=== PATIENT | female | born 1930 | race Caucasian/White ===

== ENCOUNTER 2017-10-14 15:12 | Emergency (ER) | payer MEDICARE, BC ==
[~2017-10-14] VITALS: Ht 157.5 cm; Wt 65.8 kg
[~2017-10-14 15:12] MED LIST: ATOR10TA PO; BP MED PO; FAMC500T18 PO; IRBE150T28 PO; LEVO75TA7 PO; LORA1TAB PO
[2017-10-14] MEDS ORDERED: TRAMADOL HCL 50 MG TABLET PO (15:46)
[2017-10-14] MEDS ORDERED: ACET-2154 PO (15:46)
[2017-10-14] MEDS ORDERED: MOXI3DRO OP (15:46)
[2017-10-14] MEDS ORDERED: PANT40TA4 PO (15:46)
[2017-10-14] MEDS ORDERED: ELIQUIS 2.5 MG TABLET PO (15:46)
[2017-10-14] MEDS ORDERED: NEOM3.5O9 TOP (15:46)
[2017-10-14] MEDS ORDERED: MAGN400T6 PO (15:46)
[2017-10-14] MEDS ORDERED: ASPI-1094 PO (15:46)
[2017-10-14] MEDS ORDERED: METO25TA3 PO (15:46)
[2017-10-14] MEDS ORDERED: DIFL5DRO OP (15:46)
[2017-10-14] MEDS ORDERED: SENN-167 PO (15:47)
[2017-10-14] MEDS ORDERED: ACYCLOVIR 400 MG TABLET PO ONE (16:00)
[2017-10-14] MEDS ORDERED: predniSONE 50 MG TABLET PO ONE (16:00)
--- NOTE | 2017-10-14 16:14 | NUR ---
Patient discharged to home in stable conditon. Written and verbal after care instructions given to patient and family. Patient and family verbalized understanding of instructions.
[2017-10-14] MEDS ORDERED: ACYCLOVIR 400 MG TABLET ONE (16:20)
[2017-10-14] MEDS ORDERED: predniSONE 50 MG TABLET ONE (16:20)
== END 2017-10-14 16:20 | disposition home or self-care (01) ==
LOC: ER 15:13
DX: B02.9 Zoster without complications (principal); E03.9 Hypothyroidism, unspecified; E78.00 Pure hypercholesterolemia, unspecified; I35.0 Nonrheumatic aortic (valve) stenosis; Z79.01 Long term (current) use of anticoagulants; Z79.82 Long term (current) use of aspirin; Z95.2 Presence of prosthetic heart valve
CPT/HCPCS: A4663; J7512

== ENCOUNTER 2018-03-07 19:08 | Inpatient (IN) | payer MEDICARE, BC ==
[~2018-03-07] VITALS: Ht 157.5 cm; Wt 64.4 kg
[~2018-03-07 19:08] MED LIST changes: +ACET-2154 PO; +ASPI-1094 PO; -BP MED PO; +DIFL5DRO OP; +ELIQUIS 2.5 MG TABLET PO; -FAMC500T18 PO; -LORA1TAB PO; +MAGN400T6 PO; +METO25TA3 PO; +MOXI3DRO OP; +NEOM3.5O9 TOP; +PANT40TA4 PO; +SENN-167 PO; +TRAMADOL HCL 50 MG TABLET PO
[2018-03-07] MEDS ORDERED: DILTIAZEM HCL 25 MG IV ONE (19:42)
[2018-03-07] MEDS ORDERED: DILTIAZEM HCL 25 MG IV IV ONE (19:45)
[2018-03-07] MEDS: DILTIAZEM HCL IV 125 MG in IV DEXTROSE 5% 100 ML IV PRN (20:07)
[2018-03-07] MEDS ORDERED: APIX2.5T PO (20:17)
[2018-03-07 20:21] LABS: BASOPHILS # (AUTO) 0.1 K/uL (0.0-8.0); BASOPHILS % (AUTO) 0.8 % (0.0-2.0); EOSINOPHILS # (AUTO) 0.4 K/uL (0.0-0.7); EOSINOPHILS % (AUTO) 4.1 % (0.0-7.0); HEMATOCRIT 42.1 % (31.2-41.9); HEMOGLOBIN 14.5 g/dL (10.9-14.3); LYMPHOCYTES # (AUTO) 1.6 K/uL (20.0-40.0); LYMPHOCYTES % (AUTO) 16.9 % (20.5-51.5); MEAN CORPUSCULAR HEMOGLOBIN 31.9 uug (24.7-32.8); MEAN CORPUSCULAR HGB CONC 35 g/dL (32.3-35.6); MEAN CORPUSCULAR VOLUME 92.4 fL (75.5-95.3); MONOCYTES # (AUTO) 0.8 K/uL (2.0-10.0); MONOCYTES % (AUTO) 8.1 % (0.0-11.0); NEUTROPHILS # (AUTO) 6.8 K/uL (1.8-8.9); NEUTROPHILS % (AUTO) 70.1 % (38.5-71.5); PLATELET COUNT (AUTO) 181 K/uL (179-408); RED BLOOD CELL COUNT(AUTO) 4.56 MIL/uL (3.63-4.92); WHITE BLOOD COUNT (AUTO) 9.7 K/uL (3.8-11.8)
[2018-03-07 20:30] LABS: CARBON DIOXIDE 21 mmol/L (21-32); CHLORIDE 105 mmol/L (98-107); CREATININE 1.1 mg/dL (0.6-1.3); GLUCOSE 167 mg/dL (74-106); POTASSIUM 4.2 mmol/L (3.5-5.1); UREA NITROGEN, BLOOD 21 mg/dL (7-18)
[2018-03-07 21:15] LABS: ALANINE AMINOTRANSFERASE 29 U/L (14-59); ALKALINE PHOSPHATASE 83 U/L (50-136); ASPARTATE AMINOTRANSFERASE 16 U/L (15-37); BILIRUBIN,DIRECT 0.1 mg/dL (0.0-0.2); BILIRUBIN,TOTAL 0.5 mg/dL (0.2-1.0); TOTAL PROTEIN, SERUM 7.5 g/dL (6.4-8.2)
[2018-03-07] MEDS ORDERED: INSULIN REGULAR, HUMAN 300 UNIT/3 ML VIAL SQ PRN (22:00)
[2018-03-07] MEDS ORDERED: ACETAMINOPHEN 325 MG TABLET PO PRN (22:00)
[2018-03-07] MEDS ORDERED: ONDANSETRON 4 MG/2 ML VIAL IV PRN (22:00)
[2018-03-07] MEDS ORDERED: DEXTROSE 50% 50 ML DISP.SYRIN IV PRN (22:00)
[2018-03-07] MEDS ORDERED: AMIODARONE HCL IV 150 MG in IV DEXTROSE 5% 100 ML IV ONE ×2 (22:15→23:45)
[2018-03-07] MEDS ORDERED: IRBE150T28 PO (23:39)
[2018-03-07] MEDS ORDERED: METO25TA3 PO (23:39)
[2018-03-07] MEDS ORDERED: AMIODARONE HCL 150 MG/3 ML VIAL IV ONE (23:55)
[2018-03-08] VITALS (49 sets, daily range): BP systolic 11–128; BP diastolic 36–84
[2018-03-08] MEDS: AMIODARONE HCL IV 900 MG in IV DEXTROSE 5% 482 ML IV PRN ×2 (00:32→08:14)
[2018-03-08 02:29] LABS: *BILIRUBIN,URIN NEGATIVE (NEGATIVE); *BLOOD, URINE NEGATIVE (NEGATIVE); *CLARITY,URINE CLEAR (CLEAR); *COLOR,URINE YELLOW (YELLOW); *KETONES,URINE NEGATIVE (NEGATIVE); *PROTEIN,URINE NEGATIVE (NEGATIVE); *UROBILINOGEN,URINE 0.2 E.U./dl (NORMAL); LEUKOCYTE ESTERASE ,URINE NEGATIVE (NEGATIVE); NITRITE, URINE NEGATIVE (NEGATIVE); PH,URINE 5.5 (5.0-8.0); UGLUCOSE NEGATIVE (NEGATIVE)
[2018-03-08 02:32] LABS: BACTERIA,URINE NONE SEEN /HPF (NONE SEEN); RBC,URINE NONE SEEN /HPF (0-3); SQUAMOUS EPITHELIAL CELL,UR FEW /HPF (NONE SEEN); WBC,URINE 0-3 /HPF (0-3)
[2018-03-08 05:16] LABS: BASOPHILS # (AUTO) 0.1 K/uL (0.0-8.0); EOSINOPHILS # (AUTO) 0.6 K/uL (0.0-0.7); EOSINOPHILS % (AUTO) 4.4 % (0.0-7.0); HEMATOCRIT 43.8 % (31.2-41.9); HEMOGLOBIN 15.1 g/dL (10.9-14.3); LYMPHOCYTES # (AUTO) 3.5 K/uL (20.0-40.0); LYMPHOCYTES % (AUTO) 26.1 % (20.5-51.5); MEAN CORPUSCULAR HEMOGLOBIN 31.9 uug (24.7-32.8); MEAN CORPUSCULAR HGB CONC 34 g/dL (32.3-35.6); MEAN CORPUSCULAR VOLUME 92.7 fL (75.5-95.3); MONOCYTES # (AUTO) 1.2 K/uL (2.0-10.0); NEUTROPHILS % (AUTO) 59.5 % (38.5-71.5); PLATELET COUNT (AUTO) 197 K/uL (179-408); RED BLOOD CELL COUNT(AUTO) 4.72 MIL/uL (3.63-4.92); WHITE BLOOD COUNT (AUTO) 13.4 K/uL (3.8-11.8)
[2018-03-08 05:18] LABS: CARBON DIOXIDE 22 mmol/L (21-32); CHLORIDE 106 mmol/L (98-107); CREATININE 1.1 mg/dL (0.6-1.3); GLUCOSE 137 mg/dL (74-106); PHOSPHOROUS 4.1 mg/dL (2.5-4.9); UREA NITROGEN, BLOOD 18 mg/dL (7-18)
[2018-03-08 05:32] LABS: THYROID STIMULATING HORMONE 1.151 mIU/mL (0.358-3.740)
[2018-03-08] MEDS ORDERED: DILTIAZEM HCL 25 MG IV ONE (05:38)
[2018-03-08] MEDS: DILTIAZEM HCL IV 125 MG in IV DEXTROSE 5% 100 ML IV PRN ×2 (06:00→07:58)
[2018-03-08 06:03] LABS: CHOLESTEROL 194 mg/dL (<200); HDL CHOLESTEROL 71 mg/dL (40-60); TRIGLYCERIDES 99 MG/DL (30-150)
[2018-03-08] MEDS: BLOOD SUGAR DIAGNOSTIC 1 EACH STRIP VI SCH ×4 (07:56→20:27)
[2018-03-08] MEDS ORDERED: Medication Not On Formulary EA (Apixaban (Eliquis) 2.5 MG) PO SCH (09:00)
[2018-03-08] MEDS ORDERED: Medication Not On Formulary EA (Irbesartan (Avapro) 150 MG) PO SCH (09:00)
[2018-03-08] MEDS ORDERED: METOPROLOL SUCCINATE XL 25 MG TAB.SR.24H PO SCH (09:00)
[2018-03-08] MEDS: LEVOTHYROXINE SODIUM 75 MCG TABLET PO SCH (09:06)
[2018-03-08] MEDS: PANTOPRAZOLE SODIUM 40 MG VIAL IV SCH (09:06)
[2018-03-08] MEDS ORDERED: APIXABAN 5 MG TABLET PO ONE (09:30)
[2018-03-08] MEDS ORDERED: CEFTRIAXONE 1 G VIAL IM SCH (10:30)
[2018-03-08] MEDS: AZITHROMYCIN 250 MG TABLET PO SCH ×2 (10:32→12:41)
[2018-03-08] MEDS: CEFTRIAXONE 1 G in IV DEXTROSE 5% 50 ML IV SCH (12:07)
[2018-03-08] MEDS: DILTIAZEM HCL CD 120 MG CAP.SR.24H PO SCH (12:41)
[2018-03-08] MEDS: ELIQUIS 2.5 MG ***PT'S OWN MED PO SCH (16:50)
[2018-03-08] MEDS ORDERED: ATORVASTATIN 10 MG TABLET PO SCH (21:00)
[2018-03-09] VITALS: BP 116/46
[2018-03-09 04:00] VITALS: BP 104/55
[2018-03-09 05:58] LABS: BASOPHILS % (AUTO) 0.3 % (0.0-2.0); EOSINOPHILS # (AUTO) 0.5 K/uL (0.0-0.7); EOSINOPHILS % (AUTO) 3.9 % (0.0-7.0); HEMATOCRIT 39.2 % (31.2-41.9); HEMOGLOBIN 13.4 g/dL (10.9-14.3); LYMPHOCYTES # (AUTO) 1.1 K/uL (20.0-40.0); LYMPHOCYTES % (AUTO) 8.1 % (20.5-51.5); MEAN CORPUSCULAR HEMOGLOBIN 31.6 uug (24.7-32.8); MEAN CORPUSCULAR HGB CONC 34 g/dL (32.3-35.6); MEAN CORPUSCULAR VOLUME 92.5 fL (75.5-95.3); MONOCYTES # (AUTO) 0.6 K/uL (2.0-10.0); MONOCYTES % (AUTO) 4.6 % (0.0-11.0); NEUTROPHILS % (AUTO) 83.1 % (38.5-71.5); PLATELET COUNT (AUTO) 157 K/uL (179-408); RED BLOOD CELL COUNT(AUTO) 4.24 MIL/uL (3.63-4.92); WHITE BLOOD COUNT (AUTO) 13.2 K/uL (3.8-11.8)
[2018-03-09 06:22] LABS: CARBON DIOXIDE 25 mmol/L (21-32); CHLORIDE 104 mmol/L (98-107); CREATININE 1.1 mg/dL (0.6-1.3); GLUCOSE 126 mg/dL (74-106); MAGNESIUM 1.9 mg/dL (1.8-2.4); PHOSPHOROUS 3.8 mg/dL (2.5-4.9); POTASSIUM 4.3 mmol/L (3.5-5.1); UREA NITROGEN, BLOOD 18 mg/dL (7-18)
[2018-03-09] MEDS: BLOOD SUGAR DIAGNOSTIC 1 EACH STRIP VI SCH ×2 (06:36→11:57)
[2018-03-09 08:00] VITALS: BP 93/49
[2018-03-09] MEDS: PANTOPRAZOLE SODIUM 40 MG VIAL IV SCH (08:46)
[2018-03-09] MEDS: LEVOTHYROXINE SODIUM 75 MCG TABLET PO SCH (08:47)
[2018-03-09] MEDS: ELIQUIS 2.5 MG ***PT'S OWN MED PO SCH (08:47)
[2018-03-09] MEDS: DILTIAZEM HCL CD 120 MG CAP.SR.24H PO SCH (08:48)
[2018-03-09] MEDS: AZITHROMYCIN 250 MG TABLET PO SCH (10:29)
[2018-03-09] MEDS ORDERED: CEFTRIAXONE 1 G VIAL IV SCH (10:30)
[2018-03-09] MEDS ORDERED: AZIT250T13 PO (11:39)
[2018-03-09] MEDS ORDERED: DILT120C62 PO (11:39)
[2018-03-09 11:48] VITALS: BP 93/51
[2018-03-09] MEDS: CEFTRIAXONE 1 G in IV DEXTROSE 5% 50 ML IV SCH (11:57)
[2018-03-10] MEDS ORDERED: PANTOPRAZOLE SODIUM 40 MG TABLET.DR PO SCH (07:00)
== END 2018-03-09 14:15 | disposition home or self-care (01) | DRG 280 ==
LOC: ER 19:10 → CCUOV 23:29 → CCU 03-08 07:23 → TELE-TD 03-08 19:09
PROVIDERS: ADMIT Registered Nurse; ATTEND Registered Nurse
DX: I48.91 Unspecified atrial fibrillation (principal); I21.A1 Myocardial infarction type 2; J18.9 Pneumonia, unspecified organism; E44.1 Mild protein-calorie malnutrition; I08.3 Combined rheumatic disorders of mitral, aortic and tricuspid valves; Z95.2 Presence of prosthetic heart valve; E03.9 Hypothyroidism, unspecified; E78.5 Hyperlipidemia, unspecified; Z68.26 Body mass index [BMI] 26.0-26.9, adult; Z79.01 Long term (current) use of anticoagulants; Z87.81 Personal history of (healed) traumatic fracture; I70.0 Atherosclerosis of aorta; R73.9 Hyperglycemia, unspecified; R79.89 Other specified abnormal findings of blood chemistry; T82.867D Thrombosis due to cardiac prosthetic devices, implants and grafts, subsequent encounter; I10 Essential (primary) hypertension
CPT/HCPCS: 36415; 70030-TC; 71045; 83735; 84100; 84443; 85025; 85730; 93005; 93307; A4663; C9113; J0282; J0696; J1815; J3490; J7060; Q0144

== ENCOUNTER 2018-06-15 14:24 | Emergency (ER) | payer MEDICARE, BC ==
[~2018-06-15] VITALS: Ht 165.1 cm; Wt 68.0 kg
[~2018-06-15 14:24] MED LIST changes: -ACET-2154 PO; +APIX2.5T PO; -ASPI-1094 PO; +AZIT250T13 PO; -DIFL5DRO OP; +DILT120C62 PO; -ELIQUIS 2.5 MG TABLET PO; -IRBE150T28 PO; -MAGN400T6 PO; -METO25TA3 PO; -MOXI3DRO OP; -NEOM3.5O9 TOP; -SENN-167 PO; -TRAMADOL HCL 50 MG TABLET PO
--- NOTE | 2018-06-15 14:30 | NUR ---
at bedside to examine patient.
--- NOTE | 2018-06-15 14:40 | NUR ---
pt. taken down for Ct.
--- NOTE | 2018-06-15 14:58 | NUR ---
Pt. back from CT.
--- NOTE | 2018-06-15 15:57 | NUR ---
Dr. Garcia at bedside discussing test results with patient.
--- NOTE | 2018-06-15 16:32 | NUR ---
dcd instructions given to pt. sitter at bedside. pt. left room AAOX4. accompanied by sitter.
== END 2018-06-15 16:35 | disposition home or self-care (01) ==
LOC: ER 14:25
DX: S20.229A Contusion of unspecified back wall of thorax, initial encounter (principal); S09.90XA Unspecified injury of head, initial encounter; E78.5 Hyperlipidemia, unspecified; E03.9 Hypothyroidism, unspecified; W01.0XXA Fall on same level from slipping, tripping and stumbling without subsequent striking against object, initial encounter; Y93.89 Activity, other specified; Y92.89 Other specified places as the place of occurrence of the external cause; Y99.8 Other external cause status
CPT/HCPCS: 70450; 72128; 99284; A4663

== ENCOUNTER 2018-11-03 12:00 | Inpatient (IN) | payer MEDICARE, BC ==
[~2018-11-03] VITALS: Ht 162.6 cm; Wt 67.6 kg
[2018-11-03] VITALS (11 sets, daily range): BP systolic 76–149; BP diastolic 31–110
[~2018-11-03 12:00] MED LIST changes: +DILT-8 PO; -DILT120C62 PO
[2018-11-03] MEDS ORDERED: DILTIAZEM HCL 25 MG IV ONE ×2 (12:18→12:41)
--- NOTE | 2018-11-03 12:23 | NUR ---
PT IS IN ROOM #1A. DR CAMPOS EVALUATED THE PT.
[2018-11-03] MEDS ORDERED: DILTIAZEM HCL 25 MG IV IV ONE ×2 (12:30)
[2018-11-03] MEDS ORDERED: METO-356 PO (12:34)
[2018-11-03] MEDS ORDERED: IRBE150T28 PO (12:34)
[2018-11-03 12:40] LABS: BASOPHILS # (AUTO) 0.1 K/uL (0.0-8.0); BASOPHILS % (AUTO) 0.8 % (0.0-2.0); EOSINOPHILS # (AUTO) 0.4 K/uL (0.0-0.7); EOSINOPHILS % (AUTO) 4.4 % (0.0-7.0); HEMATOCRIT 40.4 % (31.2-41.9); HEMOGLOBIN 13.4 g/dL (10.9-14.3); LYMPHOCYTES # (AUTO) 1.9 K/uL (20.0-40.0); LYMPHOCYTES % (AUTO) 23.6 % (20.5-51.5); MEAN CORPUSCULAR HEMOGLOBIN 30.4 uug (24.7-32.8); MEAN CORPUSCULAR HGB CONC 33 g/dL (32.3-35.6); MEAN CORPUSCULAR VOLUME 91.6 fL (75.5-95.3); MONOCYTES # (AUTO) 0.8 K/uL (2.0-10.0); MONOCYTES % (AUTO) 9.4 % (0.0-11.0); NEUTROPHILS # (AUTO) 5.1 K/uL (1.8-8.9); NEUTROPHILS % (AUTO) 61.8 % (38.5-71.5); PLATELET COUNT (AUTO) 191 K/uL (179-408); RED BLOOD CELL COUNT(AUTO) 4.41 MIL/uL (3.63-4.92); WHITE BLOOD COUNT (AUTO) 8.2 K/uL (3.8-11.8)
[2018-11-03 12:47] LABS: CARBON DIOXIDE 23 mmol/L (21-32); CHLORIDE 104 mmol/L (98-107); GLUCOSE 132 mg/dL (74-106); POTASSIUM 4.4 mmol/L (3.5-5.1); UREA NITROGEN, BLOOD 20 mg/dL (7-18)
[2018-11-03 13:00] LABS: THYROID STIMULATING HORMONE 1.939 mIU/mL (0.358-3.740)
[2018-11-03] MEDS ORDERED: IV NORMAL SALINE 500 ML BAG IV ONE ×2 (13:00→14:15)
[2018-11-03 13:03] LABS: ALANINE AMINOTRANSFERASE 19 U/L (14-59); ALKALINE PHOSPHATASE 81 U/L (50-136); ASPARTATE AMINOTRANSFERASE 16 U/L (15-37); BILIRUBIN,DIRECT 0.1 mg/dL (0.0-0.2); BILIRUBIN,TOTAL 0.6 mg/dL (0.2-1.0); TOTAL PROTEIN, SERUM 7.3 g/dL (6.4-8.2)
[2018-11-03] MEDS ORDERED: DILTIAZEM HCL IV 125 MG in IV DEXTROSE 5% 100 ML IV PRN (13:30)
[2018-11-03] MEDS ORDERED: AMIODARONE HCL IV 900 MG in IV DEXTROSE 5% 482 ML IV PRN ×2 (14:15→15:30)
--- NOTE | 2018-11-03 15:00 | NUR ---
ADMITTED AN 88YR OLD FEMALE FROM THE ER VIA [facility] WITH A C/O FAST HEART BEAT ABOVE 100B/MIN. AWAKE, ALERT AND ORIENTEDX3. VERY PLEASANT LADY. NO C/O CHEST PAINS. COLOR IS GOOD AND MOVE ALL EXTREMETIES WELL. HR IS AFIB WITH RVR IN THE 130'S. O2 ON 2LNC WITH A SATURATION OF 98%. NO RESPIRATORY DISTRESS NOTED. AMIODARONE BOLUS IS IN PROGRESS AND FOLLOWED UP WITH THE 1MG RUNNING VIA THE RT FA.SBP IS HOLDING.
[2018-11-03] MEDS: AMIODARONE HCL IV 150 MG in IV DEXTROSE 5% 100 ML IV ONE ×2 (15:03→15:12)
--- NOTE | 2018-11-03 15:04 | NUR ---
REPORT WAS GIVEN TO OIL RECOVERY OPERATOR MIMI. PT WAS TRANSFERED TO ROOM # CCU3.
[2018-11-03] MEDS ORDERED: FUROSEMIDE 40 MG/4 ML VIAL IV ONE (15:30)
[2018-11-03] MEDS ORDERED: ONDANSETRON 4 MG/2 ML VIAL IV PRN (18:15)
[2018-11-03] MEDS ORDERED: Z GUARD REMEDY PASTE 57 GM TUBE TOP PRN (18:15)
[2018-11-03] MEDS ORDERED: ACETAMINOPHEN 325 MG TABLET PO PRN (18:15)
--- NOTE | 2018-11-03 19:45 | NUR ---
Pt resting in bed. Respirations even and unlabored on O2 at 2lpm. Currently on Amiodarone 1mg/hr since 1554. Noted with episodes of V-tach unsustained. Pt currently speaking on phone with son. Bed in low and locked position. Call light in reach. Will continue to monitor
--- NOTE | 2018-11-03 20:10 | NUR ---
Notified MD of of unsustained episodes of V-tach. No new orders continue to monitor.Home medications reconciliation completed by .
[2018-11-03] MEDS ORDERED: APIXABAN 5 MG TABLET PO SCH (20:15)
--- NOTE | 2018-11-03 22:00 | NUR ---
Notified JIMMY Alba of episodes of V-tach once again. Suggested cardiology consult. Pt to be seen by Consulting Business Developer. New order for Metoprolol tartrate 25mg if SBP greater than 100. New order to discontinue Cardizem Drip.
[2018-11-03] MEDS ORDERED: ATORVASTATIN 10 MG TABLET ONE (22:04)
[2018-11-03] MEDS ORDERED: METOPROLOL TARTRATE 25 MG TABLET PO ONE (22:15)
[2018-11-03] MEDS: ATORVASTATIN 10 MG TABLET PO SCH (22:30)
[2018-11-03] MEDS: ZOLPIDEM 5 MG TABLET PO PRN (22:32)
[2018-11-04] VITALS (31 sets, daily range): BP systolic 91–130; BP diastolic 46–100
--- NOTE | 2018-11-04 00:40 | NUR ---
Contacted [employer]. Spoke with JIMMY desai. Received order to increase Amiodarone to 1mg. CBC, CMP, Mg and phos.
--- NOTE | 2018-11-04 00:50 | NUR ---
Spoke with Flying Squad Salesperson Dr. Michelle. New order to titrate Amiodarone back down to 0.5mg. Notified by MD that patient is having "aberrant conduction".
[2018-11-04] MEDS: AMIODARONE HCL IV 900 MG in IV DEXTROSE 5% 482 ML IV PRN ×2 (01:00→12:53)
[2018-11-04 01:53] LABS: BASOPHILS % (AUTO) 0.3 % (0.0-2.0); EOSINOPHILS # (AUTO) 0.3 K/uL (0.0-0.7); EOSINOPHILS % (AUTO) 2.1 % (0.0-7.0); HEMATOCRIT 40.6 % (31.2-41.9); HEMOGLOBIN 13.6 g/dL (10.9-14.3); LYMPHOCYTES # (AUTO) 2.2 K/uL (20.0-40.0); LYMPHOCYTES % (AUTO) 15.6 % (20.5-51.5); MEAN CORPUSCULAR HEMOGLOBIN 30.7 uug (24.7-32.8); MEAN CORPUSCULAR HGB CONC 34 g/dL (32.3-35.6); MEAN CORPUSCULAR VOLUME 91.5 fL (75.5-95.3); MONOCYTES # (AUTO) 0.8 K/uL (2.0-10.0); MONOCYTES % (AUTO) 6.1 % (0.0-11.0); NEUTROPHILS # (AUTO) 10.5 K/uL (1.8-8.9); NEUTROPHILS % (AUTO) 75.9 % (38.5-71.5); PLATELET COUNT (AUTO) 200 K/uL (179-408); RED BLOOD CELL COUNT(AUTO) 4.44 MIL/uL (3.63-4.92); WHITE BLOOD COUNT (AUTO) 13.9 K/uL (3.8-11.8)
--- NOTE | 2018-11-04 02:00 | NUR ---
Pt verbalized that she would prefer to have care provided by Female staff. Received assistance from Charge nurse. Lab results relayed to JIMMY Guerrero. No new orders at this time. Addendum: 11/04/18 at 0409 by BART LORENZ RN Also notified by patient that she does not want a Quiroz catheter inserted. Risk and benefits explained.
[2018-11-04 02:04] LABS: ALANINE AMINOTRANSFERASE 19 U/L (14-59); ALKALINE PHOSPHATASE 82 U/L (50-136); ASPARTATE AMINOTRANSFERASE 17 U/L (15-37); BILIRUBIN,TOTAL 0.7 mg/dL (0.2-1.0); CARBON DIOXIDE 25 mmol/L (21-32); CHLORIDE 102 mmol/L (98-107); CHOLESTEROL 207 mg/dL (<200); CREATININE 1.1 mg/dL (0.6-1.3); GLUCOSE 130 mg/dL (74-106); HDL CHOLESTEROL 69 mg/dL (40-60); MAGNESIUM 1.9 mg/dL (1.8-2.4); PHOSPHOROUS 4.4 mg/dL (2.5-4.9); POTASSIUM 4.1 mmol/L (3.5-5.1); TOTAL PROTEIN, SERUM 7.5 g/dL (6.4-8.2); TRIGLYCERIDES 91 MG/DL (30-150); UREA NITROGEN, BLOOD 21 mg/dL (7-18)
[2018-11-04 02:11] LABS: THYROID STIMULATING HORMONE 1.702 mIU/mL (0.358-3.740)
--- NOTE | 2018-11-04 07:30 | NUR ---
RECIEVED PT LYING IN BED SOUND ASLEEP BUT EASILY AROUSABLE TO CALL. VERY PLEASANT LADY, DENIES AND C/O PAIN. ORIENTED X3. HR IS STILL ON AFIB WITH RVR AND ABBERANCY RATE OF 130-160B/MIN. ON AMIODARONE DRIP IN PROGRESS, IV SITE APPEARS TO BE INFILTRATED, SWOLLEN AND RED. REMOVED AND RESTARTED A NEW LINE ON THE LEFT HAND G22. NO C/O OF RESPIRATORY DISTRESS. O2 ON 2LNC, SAT OF 97-99%. LUNGS ARE CLEAR.
--- NOTE | 2018-11-04 07:45 | NUR ---
APPLIED WARM COMPRESS AROUND THE INFILTRATED IV SITE RIGHT FA AND ELEVATED IT ON A PILLOW. PT MOVES ALL EXTREMETIES WELL. NO EDEMA NOTED ON PERIPHERAL EXTREMETIES.
--- NOTE | 2018-11-04 08:00 | NUR ---
PT ATE GOOD BREAKFAST, TOLERATED WELL.
[2018-11-04] MEDS: LEVOTHYROXINE SODIUM 75 MCG TABLET PO SCH (08:05)
[2018-11-04] MEDS: PANTOPRAZOLE SODIUM 40 MG TABLET.DR PO SCH (08:05)
[2018-11-04] MEDS ORDERED: PANTOPRAZOLE SODIUM 40 MG TABLET.DR PO SCH (09:00)
[2018-11-04] MEDS ORDERED: LEVOTHYROXINE SODIUM 75 MCG TABLET PO SCH (09:00)
[2018-11-04] MEDS ORDERED: APIXABAN 5 MG TABLET PO SCH (09:00)
[2018-11-04] MEDS ORDERED: METOPROLOL SUCCINATE XL 25 MG TAB.SR.24H PO SCH (09:00)
[2018-11-04] MEDS ORDERED: APIXABAN 5 MG TABLET PO ONE (09:00)
[2018-11-04] MEDS: DILTIAZEM HCL CD 120 MG CAP.SR.24H PO SCH (09:14)
--- NOTE | 2018-11-04 09:30 | NUR ---
2D ECHO DONE AT THE BEDSIDE ORDERED.
--- NOTE | 2018-11-04 12:15 | NUR ---
SEEN AND EXAMINED BY DR LEOS WITH NEW ORDERS. OKEYED TO CONTINUE BENEDICTO NAJERA.
[2018-11-04] MEDS ORDERED: DIGOXIN 500 MCG/2 ML AMP IV ONE ×2 (12:30→18:30)
--- NOTE | 2018-11-04 13:00 | NUR ---
DIGOXIN 500MCG SLOW IVP GIVEN ORDERED. HR IS 140B/MIN. PT'S IV SITE ON LEFT HAND IS INTACT, BUT PT C/O PAIN WHEN LINE IS BEING FLUSHED. STARTED ANOTHER LINE ON THE RIGHT INNER FOREARM G20 PATENT AND INTACT. AMIODARONE DRIP IS IN PROGRESS ORDERED.
--- NOTE | 2018-11-04 17:30 | NUR ---
SEEN AND EXAMINED BY DR TOLENTINO WITH NEW ORDERS.
--- NOTE | 2018-11-04 17:30 | NUR ---
SEEN AND EXAMINED BY DR CHRISTENSEN WITH NEW ORDERS. HR STILL AFIV AND RATE IS SLOWING DOWN BETWEEN 111-120B/MIN.
[2018-11-04] MEDS: APIXABAN 2.5 MG PO SCH (18:04)
--- NOTE | 2018-11-04 20:00 | NUR ---
Awake, alert, pleasant. Talkative on phone with sister. Monitor remains Atrial Fib rate 90's to 100's. Stable BP. Amiodarone drip in progress at 0.5 mg/min, site benign. Right arm nub card tender to touch from previous IV infiltration. Affected arm elevated on pillows at all times. Refused warm compress application. Excellent O2 sats; resp even and unlabored. O2 dropped down to 1L/min nasal cannula. Nursing comfort measures observed at all times. Please see CCU flowsheet for full assessment and clinical data.
--- NOTE | 2018-11-04 20:52 | NUR ---
Lipitor 10 mg magenta color on EMar for 11/03 resolved-Pt received med at 2230 by Ame Martinez RN.
[2018-11-04] MEDS: ATORVASTATIN 10 MG TABLET PO SCH (21:21)
[2018-11-04] MEDS: ZOLPIDEM 5 MG TABLET PO PRN (21:22)
[2018-11-05] VITALS (24 sets, daily range): BP systolic 90–139; BP diastolic 40–89
[2018-11-05 05:01] LABS: BASOPHILS # (AUTO) 0.1 K/uL (0.0-8.0); BASOPHILS % (AUTO) 0.6 % (0.0-2.0); EOSINOPHILS # (AUTO) 0.5 K/uL (0.0-0.7); EOSINOPHILS % (AUTO) 4.2 % (0.0-7.0); HEMATOCRIT 41.3 % (31.2-41.9); HEMOGLOBIN 13.9 g/dL (10.9-14.3); LYMPHOCYTES # (AUTO) 1.9 K/uL (20.0-40.0); LYMPHOCYTES % (AUTO) 17.5 % (20.5-51.5); MEAN CORPUSCULAR HGB CONC 34 g/dL (32.3-35.6); MONOCYTES # (AUTO) 0.9 K/uL (2.0-10.0); MONOCYTES % (AUTO) 8.4 % (0.0-11.0); NEUTROPHILS # (AUTO) 7.7 K/uL (1.8-8.9); NEUTROPHILS % (AUTO) 69.3 % (38.5-71.5); PLATELET COUNT (AUTO) 187 K/uL (179-408); RED BLOOD CELL COUNT(AUTO) 4.49 MIL/uL (3.63-4.92); WHITE BLOOD COUNT (AUTO) 11.1 K/uL (3.8-11.8)
[2018-11-05 05:16] LABS: CARBON DIOXIDE 25 mmol/L (21-32); CHLORIDE 103 mmol/L (98-107); CREATININE 1.1 mg/dL (0.6-1.3); GLUCOSE 133 mg/dL (74-106); MAGNESIUM 1.8 mg/dL (1.8-2.4); PHOSPHOROUS 3.1 mg/dL (2.5-4.9); UREA NITROGEN, BLOOD 16 mg/dL (7-18)
--- NOTE | 2018-11-05 06:00 | NUR ---
Restful night, able to sleep well after HS sleeping pill. Monitor remains Afib, at times appear to be in AFlutter with variable block. Amiodarone drip continues to infuse. Stable VS. Please see CCU flowsheet for trends and clinical data.
[2018-11-05] MEDS: PANTOPRAZOLE SODIUM 40 MG TABLET.DR PO SCH (09:06)
[2018-11-05] MEDS: LEVOTHYROXINE SODIUM 75 MCG TABLET PO SCH (09:06)
[2018-11-05] MEDS: DILTIAZEM HCL CD 120 MG CAP.SR.24H PO SCH (09:07)
[2018-11-05] MEDS: APIXABAN 2.5 MG PO SCH ×2 (09:11→17:11)
--- NOTE | 2018-11-05 10:20 | NUR ---
Dr. Alfaro here to see pt. Full report given. New orders received.
[2018-11-05] MEDS ORDERED: DIGOXIN 500 MCG/2 ML AMP IV ONE (10:45)
[2018-11-05] MEDS ORDERED: DILTIAZEM HCL CD 120 MG CAP.SR.24H PO ONE (10:45)
--- NOTE | 2018-11-05 20:00 | NUR ---
Awake, alert, anxious. Wants personal belongings to be on bed with her at all times. Always on phone with sister who lives alone. Oftentimes refuses care when on the phone. Pt needy and requires TLC. Monitor remains uncontrolled AFib, off Amiodarone drip and is being digitalized. Aware of plan for ESTEFANY/cardioversion if no conversion to SR. VS stable. Resp easy and regular with adequate sats on O2 1L/min. Please see CCU flowsheet for full assessment and clinical data.
[2018-11-05] MEDS: ATORVASTATIN 10 MG TABLET PO SCH (21:15)
[2018-11-05] MEDS: ZOLPIDEM 5 MG TABLET PO PRN (21:15)
[2018-11-06] VITALS (21 sets, daily range): BP systolic 95–145; BP diastolic 52–92
[2018-11-06 05:05] LABS: BASOPHILS # (AUTO) 0.1 K/uL (0.0-8.0); BASOPHILS % (AUTO) 0.7 % (0.0-2.0); EOSINOPHILS # (AUTO) 0.4 K/uL (0.0-0.7); EOSINOPHILS % (AUTO) 3.4 % (0.0-7.0); HEMATOCRIT 42.3 % (31.2-41.9); HEMOGLOBIN 14.1 g/dL (10.9-14.3); LYMPHOCYTES # (AUTO) 2.4 K/uL (20.0-40.0); MEAN CORPUSCULAR HEMOGLOBIN 30.4 uug (24.7-32.8); MEAN CORPUSCULAR HGB CONC 33 g/dL (32.3-35.6); MEAN CORPUSCULAR VOLUME 91.4 fL (75.5-95.3); MONOCYTES # (AUTO) 1.1 K/uL (2.0-10.0); NEUTROPHILS # (AUTO) 8.6 K/uL (1.8-8.9); NEUTROPHILS % (AUTO) 67.9 % (38.5-71.5); PLATELET COUNT (AUTO) 198 K/uL (179-408); RED BLOOD CELL COUNT(AUTO) 4.63 MIL/uL (3.63-4.92); WHITE BLOOD COUNT (AUTO) 12.7 K/uL (3.8-11.8)
[2018-11-06 05:09] LABS: CARBON DIOXIDE 26 mmol/L (21-32); CHLORIDE 102 mmol/L (98-107); CREATININE 0.9 mg/dL (0.6-1.3); GLUCOSE 116 mg/dL (74-106); MAGNESIUM 1.8 mg/dL (1.8-2.4); PHOSPHOROUS 3.8 mg/dL (2.5-4.9); POTASSIUM 4.3 mmol/L (3.5-5.1); UREA NITROGEN, BLOOD 17 mg/dL (7-18)
--- NOTE | 2018-11-06 06:00 | NUR ---
Stable night, able to sleep. Remains Afib uncontrolled. General condition unchanged. Please see CCU flowsheet for trends and clinical data. Appreciative of care.
[2018-11-06] MEDS: LEVOTHYROXINE SODIUM 75 MCG TABLET PO SCH (08:18)
[2018-11-06] MEDS: PANTOPRAZOLE SODIUM 40 MG TABLET.DR PO SCH (08:18)
[2018-11-06] MEDS: DILTIAZEM HCL CD 240 MG CAP.SR.24H PO SCH (08:19)
[2018-11-06] MEDS: DIGOXIN 125 MCG TABLET PO SCH (08:19)
[2018-11-06] MEDS: APIXABAN 2.5 MG PO SCH ×2 (08:34→17:08)
[2018-11-06] MEDS ORDERED: DILTIAZEM HCL CD 120 MG CAP.SR.24H PO SCH ×2 (09:00→21:00)
--- NOTE | 2018-11-06 17:40 | NUR ---
Dr. Alfaro here to see pt. Full report given. New orders received. stated that it was okay to downgrade pt to telemetry.
--- NOTE | 2018-11-06 20:00 | NUR ---
Awake, alert and oriented. Denies pain/discomfort. Made aware of transfer to Telemetry Floor this PM. Possible home in AM. Medication review done and pt expresses understanding. Monitor remains Atrial Fib rate 90's-110's, stable BP. Resp easy and regular. Excellent sats on O2 1L/min. PM care rendered, cooperative with care. Bladder incontinence, kept clean and dry at all times. Please see CCU flowsheet for full assessment and clinical data.
[2018-11-06] MEDS: ATORVASTATIN 10 MG TABLET PO SCH (21:12)
--- NOTE | 2018-11-06 22:00 | NUR ---
Transferred to Telemetry Floor Room 222 via bed, in stable condition accompanied by Med/Surg/Tele staff. All belongings with pt.
--- NOTE | 2018-11-06 22:00 | NUR ---
RECEIVED PT FROM CCU, ADMITTED TO TELE UNDER DR. CHRISTENSEN. IN NO ACUTE SIGNS OF DISTRESS, PT IS A/O X4. NO C/O PAIN AT THIS TIME.
[2018-11-06] MEDS: ZOLPIDEM 5 MG TABLET PO PRN (22:32)
[2018-11-07] VITALS: BP 115/64
[2018-11-07 04:00] VITALS: BP 108/65
--- NOTE | 2018-11-07 06:09 | NUR ---
PT IN BED, RESTING IN NO ACUTE SIGNS OF DISTRESS. CONTINUE ON TELE MONITORING, ON AFIB CONTROLLED, HR 99. NO C/O PAIN AT THIS TIME.
[2018-11-07] MEDS: PANTOPRAZOLE SODIUM 40 MG TABLET.DR PO SCH (06:19)
[2018-11-07] MEDS: LEVOTHYROXINE SODIUM 75 MCG TABLET PO SCH (06:19)
[2018-11-07 06:48] LABS: BASOPHILS # (AUTO) 0.1 K/uL (0.0-8.0); BASOPHILS % (AUTO) 0.5 % (0.0-2.0); EOSINOPHILS # (AUTO) 0.6 K/uL (0.0-0.7); EOSINOPHILS % (AUTO) 4.8 % (0.0-7.0); HEMATOCRIT 39.3 % (31.2-41.9); HEMOGLOBIN 13.5 g/dL (10.9-14.3); LYMPHOCYTES # (AUTO) 2.1 K/uL (20.0-40.0); LYMPHOCYTES % (AUTO) 18.1 % (20.5-51.5); MEAN CORPUSCULAR HGB CONC 34 g/dL (32.3-35.6); MEAN CORPUSCULAR VOLUME 90.4 fL (75.5-95.3); MONOCYTES # (AUTO) 0.9 K/uL (2.0-10.0); MONOCYTES % (AUTO) 8.1 % (0.0-11.0); NEUTROPHILS % (AUTO) 68.5 % (38.5-71.5); PLATELET COUNT (AUTO) 194 K/uL (179-408); RED BLOOD CELL COUNT(AUTO) 4.35 MIL/uL (3.63-4.92); WHITE BLOOD COUNT (AUTO) 11.6 K/uL (3.8-11.8)
[2018-11-07 07:02] LABS: CARBON DIOXIDE 26 mmol/L (21-32); CHLORIDE 101 mmol/L (98-107); CREATININE 0.9 mg/dL (0.6-1.3); GLUCOSE 121 mg/dL (74-106); MAGNESIUM 1.7 mg/dL (1.8-2.4); PHOSPHOROUS 3.7 mg/dL (2.5-4.9); POTASSIUM 4.3 mmol/L (3.5-5.1); UREA NITROGEN, BLOOD 19 mg/dL (7-18)
--- NOTE | 2018-11-07 07:51 | NUR ---
patient resting comfortably in bed at this time. no signs of distress. no complaints of pain. uncontrolled/controlled afib on telemetry. stable at this time. bed alarm on, call light within reach of patient. will continue to monitor throughout shift. possible d/c today.
[2018-11-07] MEDS: DILTIAZEM HCL CD 240 MG CAP.SR.24H PO SCH (08:31)
[2018-11-07] MEDS: DIGOXIN 125 MCG TABLET PO SCH (08:32)
[2018-11-07] MEDS: APIXABAN 2.5 MG PO SCH ×2 (08:34→16:00)
[2018-11-07 08:56] VITALS: BP 112/49
[2018-11-07 11:12] VITALS: BP 108/63
[2018-11-07] MEDS: MAGNESIUM SULFATE/D5W 100 ML IV SCH ×2 (11:18→12:30)
--- NOTE | 2018-11-07 12:16 | NUR ---
NOTIFIED BY DR. LEOS THAT PATIENT CAN BE CLEARED FOR DISCHARGE BY CARDIO IF PATIENT IS ABLE TO WALK AROUND THE UNIT FLOOR AND KEEP THE HEART RATE SUSTAINED UNDER 120 BPM.
--- NOTE | 2018-11-07 13:30 | NUR ---
WALKED PATIENT AROUND THE UNIT. HEART RATE SUSTAINED FROM 110s-120s. HIGHEST HEART RATE PATIENT WAS AMBULATING AROUND THE UNIT WAS 123. PATIENT ABLE TO TOLERATE AMBULATION WITHOUT COMPLAINING OF CHEST PAIN OR FEELING A RAPID HEART RATE.
[2018-11-07 15:19] VITALS: BP 120/64
[2018-11-07] MEDS ORDERED: DIGO125T5 PO (16:01)
--- NOTE | 2018-11-07 17:08 | NUR ---
Patient discharged at this time in stable condition. No signs of distress. Discharged instructions explained to patient, patient verbalized understanding of new medications, continued medications, and stopped medications per MD orders. IV-disconnected. ID-band taken off. Belongings returned to patient. Patient's own home medications returned (eliquis). Patient picked up by FELIPE. patient left hospital premises safely.
[2018-11-11] MEDS ORDERED: DILT240C88 PO (16:15)
[2018-11-11] MEDS ORDERED: DILT120C87 PO (16:15)
== END 2018-11-07 17:08 | disposition home health service (06) | DRG 280 ==
LOC: ER 12:01 → CCU 14:17 → TELE 11-06 22:00
PROVIDERS: ADMIT Nurse Practitioner Acute Care; ATTEND Nurse Practitioner Acute Care
PROC: 3E033RZ Introduction of Antiarrhythmic into Peripheral Vein, Percutaneous Approach (ICD-10-PCS; principal; 2018-11-03)
DX: I48.0 Paroxysmal atrial fibrillation (principal); N17.0 Acute kidney failure with tubular necrosis; I21.A1 Myocardial infarction type 2; I50.32 Chronic diastolic (congestive) heart failure; Z86.718 Personal history of other venous thrombosis and embolism; Z79.01 Long term (current) use of anticoagulants; Z95.2 Presence of prosthetic heart valve; E03.9 Hypothyroidism, unspecified; I11.0 Hypertensive heart disease with heart failure; E78.5 Hyperlipidemia, unspecified; R42 Dizziness and giddiness; R73.03 Prediabetes; I08.3 Combined rheumatic disorders of mitral, aortic and tricuspid valves; Z86.69 Personal history of other diseases of the nervous system and sense organs; Z87.81 Personal history of (healed) traumatic fracture
CPT/HCPCS: 36415; 70030-TC; 71045; 83735; 84100; 84443; 85025; 85730; 93005; 93307; A4663; G0378; J0282; J1160; J1940; J3475; J3490; J7040; J7060

== ENCOUNTER 2018-11-09 12:25 | Inpatient (IN) | payer MEDICARE, BC ==
[~2018-11-09] VITALS: Ht 162.6 cm; Wt 67.1 kg
[~2018-11-09 12:25] MED LIST changes: -AZIT250T13 PO; +DIGO125T5 PO
--- NOTE | 2018-11-09 12:41 | NUR ---
PT IS IN ROOM #2A. DR CAMPOS EVALUATED THE PT.
[2018-11-09] MEDS ORDERED: DILTIAZEM HCL 25 MG IV IV ONE ×3 (12:45→14:30)
[2018-11-09] MEDS ORDERED: DILTIAZEM HCL 25 MG IV ONE (12:49)
[2018-11-09 12:58] LABS: BASOPHILS # (AUTO) 0.1 K/uL (0.0-8.0); BASOPHILS % (AUTO) 1.1 % (0.0-2.0); EOSINOPHILS # (AUTO) 0.3 K/uL (0.0-0.7); EOSINOPHILS % (AUTO) 4.3 % (0.0-7.0); HEMATOCRIT 40.6 % (31.2-41.9); HEMOGLOBIN 13.6 g/dL (10.9-14.3); LYMPHOCYTES # (AUTO) 1.5 K/uL (20.0-40.0); LYMPHOCYTES % (AUTO) 18.2 % (20.5-51.5); MEAN CORPUSCULAR HEMOGLOBIN 30.6 uug (24.7-32.8); MEAN CORPUSCULAR HGB CONC 34 g/dL (32.3-35.6); MEAN CORPUSCULAR VOLUME 91.1 fL (75.5-95.3); MONOCYTES # (AUTO) 0.6 K/uL (2.0-10.0); MONOCYTES % (AUTO) 7.9 % (0.0-11.0); NEUTROPHILS # (AUTO) 5.5 K/uL (1.8-8.9); NEUTROPHILS % (AUTO) 68.5 % (38.5-71.5); PLATELET COUNT (AUTO) 216 K/uL (179-408); RED BLOOD CELL COUNT(AUTO) 4.46 MIL/uL (3.63-4.92); WHITE BLOOD COUNT (AUTO) 8.1 K/uL (3.8-11.8)
[2018-11-09] MEDS ORDERED: DIGOXIN 500 MCG/2 ML AMP ONE (12:58)
[2018-11-09] MEDS ORDERED: DIGOXIN 500 MCG/2 ML AMP IV ONE (13:00)
[2018-11-09 13:01] LABS: CARBON DIOXIDE 26 mmol/L (21-32); CHLORIDE 101 mmol/L (98-107); CREATININE 1.1 mg/dL (0.6-1.3); GLUCOSE 128 mg/dL (74-106); POTASSIUM 4.1 mmol/L (3.5-5.1); UREA NITROGEN, BLOOD 22 mg/dL (7-18)
[2018-11-09 13:15] LABS: ALANINE AMINOTRANSFERASE 23 U/L (14-59); ALKALINE PHOSPHATASE 91 U/L (50-136); ASPARTATE AMINOTRANSFERASE 17 U/L (15-37); BILIRUBIN,DIRECT 0.1 mg/dL (0.0-0.2); BILIRUBIN,TOTAL 0.6 mg/dL (0.2-1.0); TOTAL PROTEIN, SERUM 7.9 g/dL (6.4-8.2)
[2018-11-09] MEDS ORDERED: DILTIAZEM HCL CD 180 MG CAP.SR.24H PO SCH (14:15)
--- NOTE | 2018-11-09 15:00 | NUR ---
Pt admited from ER via [facility].Awake,alert,oriented.Denies chest pain,discomfort.Respiration even,unlabored.No SOB noted.Able to ambulate in room,no SOB noted.AFib on monitor with rate 110-120.Called for admiting orders.Awaiting for Kyle MARQUEZ for to evaluate pt.
--- NOTE | 2018-11-09 15:00 | NUR ---
REPORT WAS GIVEN TO KRISHNA COBOS. PT IS RESTING IN BEDCOMFORTABLY. NO S/S OF ACUTE DISTRESS AT THIS TIME.
--- NOTE | 2018-11-09 15:19 | NUR ---
PT IS IN ROOM #2A. DR CAMPOS EVALUATED THE PT.
--- NOTE | 2018-11-09 15:32 | NUR ---
PT WAS TRANSFERED TO [facility] ROOM #209.
[2018-11-09 15:48] VITALS: BP 111/70
[2018-11-09] MEDS ORDERED: MAGNESIUM HYDROXIDE 30 ML LIQUID UDC PO PRN (19:00)
[2018-11-09] MEDS ORDERED: ACETAMINOPHEN 325 MG TABLET PO PRN (19:00)
[2018-11-09] MEDS ORDERED: HYDROCODONE/APAP 5-325MG TABLET PO PRN (19:00)
[2018-11-09] MEDS ORDERED: ONDANSETRON 4 MG/2 ML VIAL IV PRN (19:00)
[2018-11-09] MEDS ORDERED: ZOLPIDEM 5 MG TABLET PO PRN (19:00)
[2018-11-09] MEDS ORDERED: Z GUARD REMEDY PASTE 57 GM TUBE TOP PRN (19:00)
[2018-11-09 19:18] VITALS: BP 114/70
[2018-11-09 20:00] VITALS: BP 114/70
--- NOTE | 2018-11-09 20:00 | NUR ---
RECEIVED PT. AWAKE, ALERT & ORIENTED X3. DENIES DISCOMFORTS. HEP LOCK INTACT ON LAC & PATENT. ON RM AIR W/ O2 SAT OF 97%. C-SCOPE AFIB UNCONTROLLED HR-106. ANGE PATEL TALKED TO PT.
[2018-11-09] MEDS ORDERED: APIXABAN 5 MG TABLET PO ONE ×2 (20:15)
[2018-11-09] MEDS: DILTIAZEM HCL CD 120 MG CAP.SR.24H PO SCH (20:45)
[2018-11-09] MEDS: ATORVASTATIN 10 MG TABLET PO SCH (20:46)
[2018-11-09 23:21] VITALS: BP 91/55
[2018-11-10] VITALS (8 sets, daily range): BP systolic 91–107; BP diastolic 45–67
[2018-11-10 06:34] LABS: BASOPHILS # (AUTO) 0.1 K/uL (0.0-8.0); BASOPHILS % (AUTO) 0.9 % (0.0-2.0); EOSINOPHILS # (AUTO) 0.5 K/uL (0.0-0.7); EOSINOPHILS % (AUTO) 5.5 % (0.0-7.0); HEMATOCRIT 36.9 % (31.2-41.9); HEMOGLOBIN 12.7 g/dL (10.9-14.3); LYMPHOCYTES # (AUTO) 2.4 K/uL (20.0-40.0); MEAN CORPUSCULAR HGB CONC 34 g/dL (32.3-35.6); MEAN CORPUSCULAR VOLUME 90.4 fL (75.5-95.3); MONOCYTES # (AUTO) 0.8 K/uL (2.0-10.0); MONOCYTES % (AUTO) 8.8 % (0.0-11.0); NEUTROPHILS # (AUTO) 5.4 K/uL (1.8-8.9); NEUTROPHILS % (AUTO) 58.8 % (38.5-71.5); PLATELET COUNT (AUTO) 197 K/uL (179-408); RED BLOOD CELL COUNT(AUTO) 4.08 MIL/uL (3.63-4.92); WHITE BLOOD COUNT (AUTO) 9.2 K/uL (3.8-11.8)
[2018-11-10] MEDS: PANTOPRAZOLE SODIUM 40 MG TABLET.DR PO SCH (06:42)
[2018-11-10] MEDS: LEVOTHYROXINE SODIUM 75 MCG TABLET PO SCH (06:42)
[2018-11-10 06:52] LABS: CARBON DIOXIDE 25 mmol/L (21-32); CHLORIDE 104 mmol/L (98-107); CHOLESTEROL 157 mg/dL (<200); CREATININE 0.9 mg/dL (0.6-1.3); GLUCOSE 106 mg/dL (74-106); HDL CHOLESTEROL 52 mg/dL (40-60); PHOSPHOROUS 3.5 mg/dL (2.5-4.9); POTASSIUM 3.9 mmol/L (3.5-5.1); TRIGLYCERIDES 77 MG/DL (30-150); UREA NITROGEN, BLOOD 17 mg/dL (7-18)
[2018-11-10] MEDS: DIGOXIN 125 MCG TABLET PO SCH (08:14)
[2018-11-10] MEDS: DILTIAZEM HCL CD 240 MG CAP.SR.24H PO SCH (08:14)
[2018-11-10] MEDS ORDERED: APIXABAN 5 MG TABLET PO ONE (09:30)
--- NOTE | 2018-11-10 12:48 | NUR ---
DOCTOR PAULINO SPOKE TO PATIENT. PENDING DOCTOR CARDIOLOGY TO SEE PATIENT AND ADJUST MEDICATIONS AND SPEAK WITH PRIMARY WHICH IS ANGE MARQUEZ TODAY. PATIENT CALLED DOCTOR PAULINO TO ROOM
[2018-11-10] MEDS ORDERED: DIGOXIN 500 MCG/2 ML AMP IV ONE (14:00)
[2018-11-10] MEDS ORDERED: Medication Not On Formulary EA (Apixaban (Eliquis) 2.5 MG) PO SCH (17:00)
[2018-11-10] MEDS: APIXABAN 5 MG TABLET PO SCH (17:14)
--- NOTE | 2018-11-10 19:20 | NUR ---
Received patient lying in bed. AAOX4. In no acute distress. Denies any pain or SOB. IV site on left AC intact and patent. A. fib. on tele at 74/min. Needs assessed and attended to. Safety measure initiated and call coffey within reach.
[2018-11-10] MEDS: ATORVASTATIN 10 MG TABLET PO SCH (20:11)
[2018-11-10] MEDS: DILTIAZEM HCL CD 120 MG CAP.SR.24H PO SCH (22:30)
[2018-11-11 03:23] VITALS: BP 112/54
[2018-11-11] MEDS: LEVOTHYROXINE SODIUM 75 MCG TABLET PO SCH (06:00)
[2018-11-11] MEDS: PANTOPRAZOLE SODIUM 40 MG TABLET.DR PO SCH (06:00)
--- NOTE | 2018-11-11 06:14 | NUR ---
AAOX4. In no acute distress. Denies any pain or SOB. IV site on left AC intact and patent. A. fib. on tele at 66/min. Needs attended to and met. Safety measure maintained and call coffey within reach.
[2018-11-11] MEDS: DILTIAZEM HCL CD 240 MG CAP.SR.24H PO SCH (09:09)
[2018-11-11] MEDS: DIGOXIN 125 MCG TABLET PO SCH (09:09)
[2018-11-11] MEDS: APIXABAN 5 MG TABLET PO SCH (09:10)
[2018-11-11 11:16] VITALS: BP 107/64
--- NOTE | 2018-11-11 14:15 | NUR ---
Discharge instructions given to patient. Pt verbalized understanding. Pharmacy education refused by patient. No sob noted upon discharge. Pt refused vaccination and is to f/u with PMD within one week.
[2018-11-11] MEDS ORDERED: DILT120C87 PO (16:15)
[2018-11-11] MEDS ORDERED: DILT240C88 PO (16:15)
== END 2018-11-11 14:15 | disposition home or self-care (01) | DRG 310 ==
LOC: ER 12:25 → TELE 15:19 → TELE-TD 15:45 → TELE 11-10 14:37
PROVIDERS: ADMIT Hospitalist; ATTEND Hospitalist
PROC: 3E033RZ Introduction of Antiarrhythmic into Peripheral Vein, Percutaneous Approach (ICD-10-PCS; principal; 2018-11-09)
DX: I48.0 Paroxysmal atrial fibrillation (principal); Z95.2 Presence of prosthetic heart valve; Z79.01 Long term (current) use of anticoagulants; Z86.718 Personal history of other venous thrombosis and embolism; E78.5 Hyperlipidemia, unspecified; E03.9 Hypothyroidism, unspecified; Z86.79 Personal history of other diseases of the circulatory system; I11.9 Hypertensive heart disease without heart failure; I70.0 Atherosclerosis of aorta; Z91.14 Patient's other noncompliance with medication regimen
CPT/HCPCS: 36415; 70030-TC; 71045; 83735; 84100; 84443; 85025; 85730; 93005; A4663; G0378; J1160; J2405; J3490

== ENCOUNTER 2019-05-10 09:24 | Inpatient (IN) | payer MEDICARE, BC ==
[~2019-05-10] VITALS: Ht 162.6 cm; Wt 67.1 kg
[~2019-05-10 09:24] MED LIST changes: -DILT-8 PO; +DILT120C87 PO; +DILT240C88 PO; -PANT40TA4 PO
[2019-05-10] MEDS ORDERED: METO50TA16 PO (09:45)
[2019-05-10] MEDS ORDERED: DILTIAZEM HCL IV 125 MG in IV DEXTROSE 5% 100 ML IV PRN (10:00)
[2019-05-10 10:08] LABS: CARBON DIOXIDE 21 mmol/L (21-32); CHLORIDE 106 mmol/L (98-107); CREATININE 1.1 mg/dL (0.6-1.3); GLUCOSE 125 mg/dL (74-106); POTASSIUM 4.1 mmol/L (3.5-5.1); UREA NITROGEN, BLOOD 29 mg/dL (7-18)
[2019-05-10 10:09] LABS: BASOPHILS # (AUTO) 0.1 K/uL (0.0-8.0); BASOPHILS % (AUTO) 0.7 % (0.0-2.0); EOSINOPHILS # (AUTO) 0.4 K/uL (0.0-0.7); EOSINOPHILS % (AUTO) 3.3 % (0.0-7.0); HEMATOCRIT 39.3 % (31.2-41.9); LYMPHOCYTES # (AUTO) 1.8 K/uL (20.0-40.0); LYMPHOCYTES % (AUTO) 16.1 % (20.5-51.5); MEAN CORPUSCULAR HEMOGLOBIN 30.3 uug (24.7-32.8); MEAN CORPUSCULAR HGB CONC 33 g/dL (32.3-35.6); MEAN CORPUSCULAR VOLUME 91.8 fL (75.5-95.3); MONOCYTES # (AUTO) 0.8 K/uL (2.0-10.0); NEUTROPHILS # (AUTO) 8.3 K/uL (1.8-8.9); NEUTROPHILS % (AUTO) 72.9 % (38.5-71.5); PLATELET COUNT (AUTO) 207 K/uL (179-408); RED BLOOD CELL COUNT(AUTO) 4.28 MIL/uL (3.63-4.92); WHITE BLOOD COUNT (AUTO) 11.4 K/uL (3.8-11.8)
[2019-05-10 10:24] LABS: ALANINE AMINOTRANSFERASE 50 U/L (14-59); ALKALINE PHOSPHATASE 88 U/L (50-136); ASPARTATE AMINOTRANSFERASE 33 U/L (15-37); BILIRUBIN,DIRECT 0.2 mg/dL (0.0-0.2); TOTAL PROTEIN, SERUM 7.3 g/dL (6.4-8.2)
[2019-05-10] MEDS: DILTIAZEM HCL IV 15 MG in IV DEXTROSE 5% 100 ML IV ONE ×2 (10:43→10:49)
[2019-05-10] MEDS ORDERED: DILTIAZEM HCL IV 15 MG in IV DEXTROSE 5% 100 ML IV ONE (10:45)
[2019-05-10] MEDS ORDERED: Z GUARD REMEDY PASTE 57 GM TUBE TOP PRN (12:45)
[2019-05-10] MEDS ORDERED: MAGNESIUM HYDROXIDE 30 ML LIQUID UDC PO PRN (12:45)
[2019-05-10] MEDS ORDERED: ACETAMINOPHEN 325 MG TABLET PO PRN (12:45)
[2019-05-10] MEDS ORDERED: METOPROLOL SUCCINATE XL 50 MG TAB.SR.24H PO SCH (12:45)
[2019-05-10] MEDS ORDERED: ONDANSETRON 4 MG/2 ML VIAL IV PRN (12:45)
[2019-05-10] MEDS ORDERED: ENOXAPARIN SODIUM 40 MG/0.4 ML DISP.SYRIN SQ SCH ×2 (12:45→21:00)
[2019-05-10 12:58] VITALS: BP 117/91
[2019-05-10] MEDS ORDERED: APIXABAN 5 MG TABLET PO SCH (13:10)
[2019-05-10] MEDS: DILTIAZEM HCL IV 125 MG in IV DEXTROSE 5% 100 ML IV PRN (13:33)
[2019-05-10] MEDS ORDERED: FUROSEMIDE 20 MG/2 ML VIAL IV ONE (14:15)
[2019-05-10] MEDS: METOPROLOL SUCCINATE XL 50 MG TAB.SR.24H PO SCH (14:53)
[2019-05-10 15:25] VITALS: BP 126/80
[2019-05-10 16:26] LABS: *BILIRUBIN,URIN NEGATIVE (NEGATIVE); *BLOOD, URINE 2+ (NEGATIVE); *COLOR,URINE YELLOW (YELLOW); *KETONES,URINE NEGATIVE (NEGATIVE); *UROBILINOGEN,URINE 0.2 E.U./dl (NORMAL); LEUKOCYTE ESTERASE ,URINE 2+ (NEGATIVE); NITRITE, URINE NEGATIVE (NEGATIVE); PH,URINE 5.5 (5.0-8.0); UGLUCOSE NEGATIVE (NEGATIVE)
[2019-05-10] MEDS ORDERED: Medication Not On Formulary EA (Apixaban (Eliquis) 5 MG) PO SCH (17:00)
[2019-05-10] MEDS ORDERED: Medication Not On Formulary EA (Apixaban (Eliquis) 2.5 MG) PO SCH (17:00)
[2019-05-10] MEDS ORDERED: METOPROLOL TARTRATE 50 MG TABLET PO SCH (17:00)
[2019-05-10 17:07] LABS: *CLARITY,URINE CLOUDY (CLEAR)
[2019-05-10 17:09] LABS: BACTERIA,URINE MANY /HPF (NONE SEEN); MUCUS,URINE MODERATE /LPF (0-FEW); SQUAMOUS EPITHELIAL CELL,UR MANY /HPF (NONE SEEN); WBC,URINE 50-80 /HPF (0-3)
[2019-05-10] MEDS: CEphaleXIN 500 MG CAPSULE PO SCH (20:41)
[2019-05-10] MEDS: ATORVASTATIN 10 MG TABLET PO SCH (20:42)
[2019-05-10] MEDS: DOCUSATE SODIUM 250 MG CAPSULE PO SCH (20:42)
[2019-05-10] MEDS: APIXABAN 5 MG TABLET PO SCH (20:48)
[2019-05-10 20:50] VITALS: BP 95/66
[2019-05-11] MEDS: DILTIAZEM HCL IV 125 MG in IV DEXTROSE 5% 100 ML IV PRN (00:02)
[2019-05-11 00:26] VITALS: BP 100/66
[2019-05-11 05:44] LABS: BASOPHILS % (AUTO) 0.2 % (0.0-2.0); EOSINOPHILS # (AUTO) 0.4 K/uL (0.0-0.7); HEMATOCRIT 38.9 % (31.2-41.9); HEMOGLOBIN 13.3 g/dL (10.9-14.3); LYMPHOCYTES # (AUTO) 0.7 K/uL (20.0-40.0); LYMPHOCYTES % (AUTO) 5.1 % (20.5-51.5); MEAN CORPUSCULAR HEMOGLOBIN 30.3 uug (24.7-32.8); MEAN CORPUSCULAR HGB CONC 34 g/dL (32.3-35.6); MEAN CORPUSCULAR VOLUME 88.9 fL (75.5-95.3); MONOCYTES # (AUTO) 0.6 K/uL (2.0-10.0); MONOCYTES % (AUTO) 4.6 % (0.0-11.0); NEUTROPHILS # (AUTO) 11.3 K/uL (1.8-8.9); NEUTROPHILS % (AUTO) 87.1 % (38.5-71.5); PLATELET COUNT (AUTO) 219 K/uL (179-408); RED BLOOD CELL COUNT(AUTO) 4.37 MIL/uL (3.63-4.92); WHITE BLOOD COUNT (AUTO) 12.9 K/uL (3.8-11.8)
[2019-05-11 06:11] LABS: CARBON DIOXIDE 24 mmol/L (21-32); CHLORIDE 103 mmol/L (98-107); CREATININE 1.2 mg/dL (0.6-1.3); GLUCOSE 140 mg/dL (74-106); HDL CHOLESTEROL 40 mg/dL (40-60); MAGNESIUM 1.8 mg/dL (1.8-2.4); PHOSPHOROUS 3.8 mg/dL (2.5-4.9); POTASSIUM 3.9 mmol/L (3.5-5.1); TRIGLYCERIDES 80 MG/DL (30-150); UREA NITROGEN, BLOOD 29 mg/dL (7-18)
[2019-05-11] MEDS: PANTOPRAZOLE SODIUM 40 MG TABLET.DR PO SCH (06:14)
[2019-05-11] MEDS: LEVOTHYROXINE SODIUM 75 MCG TABLET PO SCH (06:14)
[2019-05-11 06:16] LABS: THYROID STIMULATING HORMONE 3.726 mIU/mL (0.358-3.740)
[2019-05-11 06:56] LABS: CHOLESTEROL 127 mg/dL (<200)
[2019-05-11 07:45] VITALS: BP 119/83
[2019-05-11] MEDS: METOPROLOL SUCCINATE XL 50 MG TAB.SR.24H PO SCH ×2 (08:38→16:50)
[2019-05-11] MEDS: CEphaleXIN 500 MG CAPSULE PO SCH ×2 (08:38→16:51)
[2019-05-11] MEDS: APIXABAN 5 MG TABLET PO SCH ×2 (08:40→16:52)
[2019-05-11] MEDS ORDERED: DIGOXIN 125 MCG TABLET PO SCH (09:00)
[2019-05-11] MEDS ORDERED: CEphaleXIN 500 MG CAPSULE PO SCH (09:00)
[2019-05-11] MEDS: DILTIAZEM HCL CD 120 MG CAP.SR.24H PO SCH ×2 (10:58→16:50)
[2019-05-11 10:59] VITALS: BP 113/60
[2019-05-11] MEDS: FUROSEMIDE 20 MG/2 ML VIAL IV SCH ×2 (11:31→20:24)
[2019-05-11 15:25] VITALS: BP 103/64
[2019-05-11 17:35] VITALS: BP 106/67
[2019-05-11 20:00] VITALS: BP 111/70
[2019-05-11] MEDS: ATORVASTATIN 10 MG TABLET PO SCH (20:24)
[2019-05-11] MEDS: DOCUSATE SODIUM 250 MG CAPSULE PO SCH (20:24)
[2019-05-12 00:29] VITALS: BP 110/65
[2019-05-12 04:00] VITALS: BP 90/60
[2019-05-12 05:37] LABS: BASOPHILS % (AUTO) 0.4 % (0.0-2.0); EOSINOPHILS # (AUTO) 0.5 K/uL (0.0-0.7); EOSINOPHILS % (AUTO) 6.3 % (0.0-7.0); HEMATOCRIT 39.4 % (31.2-41.9); HEMOGLOBIN 13.6 g/dL (10.9-14.3); LYMPHOCYTES # (AUTO) 2.3 K/uL (20.0-40.0); LYMPHOCYTES % (AUTO) 26.5 % (20.5-51.5); MEAN CORPUSCULAR HEMOGLOBIN 30.7 uug (24.7-32.8); MEAN CORPUSCULAR HGB CONC 35 g/dL (32.3-35.6); MEAN CORPUSCULAR VOLUME 89.2 fL (75.5-95.3); MONOCYTES # (AUTO) 0.6 K/uL (2.0-10.0); MONOCYTES % (AUTO) 7.3 % (0.0-11.0); NEUTROPHILS # (AUTO) 5.1 K/uL (1.8-8.9); NEUTROPHILS % (AUTO) 59.5 % (38.5-71.5); PLATELET COUNT (AUTO) 212 K/uL (179-408); RED BLOOD CELL COUNT(AUTO) 4.42 MIL/uL (3.63-4.92); WHITE BLOOD COUNT (AUTO) 8.6 K/uL (3.8-11.8)
[2019-05-12 05:54] LABS: CARBON DIOXIDE 28 mmol/L (21-32); CHLORIDE 105 mmol/L (98-107); CREATININE 1.1 mg/dL (0.6-1.3); GLUCOSE 102 mg/dL (74-106); MAGNESIUM 1.8 mg/dL (1.8-2.4); PHOSPHOROUS 3.5 mg/dL (2.5-4.9); POTASSIUM 3.1 mmol/L (3.5-5.1); UREA NITROGEN, BLOOD 27 mg/dL (7-18)
[2019-05-12] MEDS: PANTOPRAZOLE SODIUM 40 MG TABLET.DR PO SCH (06:28)
[2019-05-12] MEDS: LEVOTHYROXINE SODIUM 75 MCG TABLET PO SCH (06:28)
[2019-05-12 08:00] VITALS: BP 109/72
[2019-05-12] MEDS: DILTIAZEM HCL CD 120 MG CAP.SR.24H PO SCH ×2 (08:50→17:19)
[2019-05-12] MEDS: CEphaleXIN 500 MG CAPSULE PO SCH ×2 (08:50→17:19)
[2019-05-12] MEDS: METOPROLOL SUCCINATE XL 50 MG TAB.SR.24H PO SCH ×2 (08:51→17:19)
[2019-05-12] MEDS: APIXABAN 5 MG TABLET PO SCH ×2 (08:52→17:20)
[2019-05-12] MEDS ORDERED: POTASSIUM CHLORIDE 10 MEQ TAB.PRT.SR PO ONE (11:15)
[2019-05-12 11:17] VITALS: BP 107/72
[2019-05-12] MEDS: POTASSIUM CHLORIDE 50 ML IV SCH ×2 (11:32→12:50)
[2019-05-12] MEDS: POTASSIUM CHLORIDE 20 MEQ POWDER PACKET PO SCH ×3 (11:32→17:17)
[2019-05-12 17:37] VITALS: BP 115/56
[2019-05-12 19:59] VITALS: BP 106/68
[2019-05-12] MEDS: ATORVASTATIN 10 MG TABLET PO SCH (20:32)
[2019-05-12] MEDS: DOCUSATE SODIUM 250 MG CAPSULE PO SCH (20:32)
[2019-05-13 00:53] VITALS: BP 111/52
[2019-05-13 05:06] VITALS: BP 96/55
[2019-05-13] MEDS: LEVOTHYROXINE SODIUM 75 MCG TABLET PO SCH (06:01)
[2019-05-13] MEDS: PANTOPRAZOLE SODIUM 40 MG TABLET.DR PO SCH (06:01)
[2019-05-13 06:26] LABS: BASOPHILS % (AUTO) 0.3 % (0.0-2.0); EOSINOPHILS # (AUTO) 0.6 K/uL (0.0-0.7); HEMATOCRIT 36.5 % (31.2-41.9); HEMOGLOBIN 12.4 g/dL (10.9-14.3); LYMPHOCYTES # (AUTO) 2.2 K/uL (20.0-40.0); LYMPHOCYTES % (AUTO) 19.7 % (20.5-51.5); MEAN CORPUSCULAR HEMOGLOBIN 30.7 uug (24.7-32.8); MEAN CORPUSCULAR HGB CONC 34 g/dL (32.3-35.6); MEAN CORPUSCULAR VOLUME 90.7 fL (75.5-95.3); MONOCYTES # (AUTO) 0.9 K/uL (2.0-10.0); MONOCYTES % (AUTO) 8.5 % (0.0-11.0); NEUTROPHILS # (AUTO) 7.3 K/uL (1.8-8.9); NEUTROPHILS % (AUTO) 66.5 % (38.5-71.5); PLATELET COUNT (AUTO) 192 K/uL (179-408); RED BLOOD CELL COUNT(AUTO) 4.03 MIL/uL (3.63-4.92); WHITE BLOOD COUNT (AUTO) 10.9 K/uL (3.8-11.8)
[2019-05-13 06:49] LABS: CARBON DIOXIDE 25 mmol/L (21-32); CHLORIDE 107 mmol/L (98-107); GLUCOSE 97 mg/dL (74-106); MAGNESIUM 1.9 mg/dL (1.8-2.4); PHOSPHOROUS 3.3 mg/dL (2.5-4.9); POTASSIUM 3.8 mmol/L (3.5-5.1); UREA NITROGEN, BLOOD 22 mg/dL (7-18)
[2019-05-13] MEDS: APIXABAN 5 MG TABLET PO SCH ×2 (09:00→17:55)
[2019-05-13] MEDS: CEphaleXIN 500 MG CAPSULE PO SCH ×3 (09:00→17:56)
[2019-05-13] MEDS ORDERED: FENTANYL CITRATE 100 MCG/2 ML AMPUL ONE (11:05)
[2019-05-13] MEDS: DILTIAZEM HCL CD 120 MG CAP.SR.24H PO SCH ×2 (13:28→17:58)
[2019-05-13] MEDS: METOPROLOL SUCCINATE XL 50 MG TAB.SR.24H PO SCH ×2 (13:29→17:58)
[2019-05-13] MEDS ORDERED: LIDOCAINE-MPF 2% 5 ML VIAL MC ONE (14:14)
[2019-05-13] MEDS ORDERED: PROPOFOL 200 MG/20 ML BOTTLE IV ONE (14:14)
[2019-05-13 15:19] VITALS: BP 99/73
[2019-05-13] MEDS ORDERED: DILTIAZEM HCL CD 120 MG CAP.SR.24H PO SCH (17:00)
[2019-05-13] MEDS ORDERED: METOPROLOL SUCCINATE XL 50 MG TAB.SR.24H PO SCH ×2 (17:00)
[2019-05-13 20:00] VITALS: BP 98/68
[2019-05-13] MEDS: ATORVASTATIN 10 MG TABLET PO SCH (20:48)
[2019-05-13] MEDS: DOCUSATE SODIUM 250 MG CAPSULE PO SCH (20:48)
[2019-05-14 00:22] VITALS: BP 98/72
[2019-05-14 04:00] VITALS: BP 98/66
[2019-05-14] MEDS: LEVOTHYROXINE SODIUM 75 MCG TABLET PO SCH (06:12)
[2019-05-14] MEDS: PANTOPRAZOLE SODIUM 40 MG TABLET.DR PO SCH (06:12)
[2019-05-14 07:17] LABS: BASOPHILS # (AUTO) 0.1 K/uL (0.0-8.0); BASOPHILS % (AUTO) 0.5 % (0.0-2.0); EOSINOPHILS # (AUTO) 0.5 K/uL (0.0-0.7); EOSINOPHILS % (AUTO) 5.1 % (0.0-7.0); HEMATOCRIT 39.1 % (31.2-41.9); HEMOGLOBIN 13.1 g/dL (10.9-14.3); LYMPHOCYTES # (AUTO) 2.4 K/uL (20.0-40.0); LYMPHOCYTES % (AUTO) 24.5 % (20.5-51.5); MEAN CORPUSCULAR HEMOGLOBIN 30.5 uug (24.7-32.8); MEAN CORPUSCULAR HGB CONC 33 g/dL (32.3-35.6); MEAN CORPUSCULAR VOLUME 91.2 fL (75.5-95.3); MONOCYTES # (AUTO) 0.8 K/uL (2.0-10.0); MONOCYTES % (AUTO) 8.3 % (0.0-11.0); NEUTROPHILS # (AUTO) 6.1 K/uL (1.8-8.9); NEUTROPHILS % (AUTO) 61.6 % (38.5-71.5); PLATELET COUNT (AUTO) 191 K/uL (179-408); RED BLOOD CELL COUNT(AUTO) 4.29 MIL/uL (3.63-4.92); WHITE BLOOD COUNT (AUTO) 9.9 K/uL (3.8-11.8)
[2019-05-14 07:29] LABS: CARBON DIOXIDE 22 mmol/L (21-32); CHLORIDE 108 mmol/L (98-107); GLUCOSE 112 mg/dL (74-106); MAGNESIUM 2.1 mg/dL (1.8-2.4); PHOSPHOROUS 3.2 mg/dL (2.5-4.9); POTASSIUM 3.8 mmol/L (3.5-5.1); UREA NITROGEN, BLOOD 19 mg/dL (7-18)
[2019-05-14] MEDS: APIXABAN 5 MG TABLET PO SCH ×2 (09:04→16:46)
[2019-05-14] MEDS: CEphaleXIN 500 MG CAPSULE PO SCH ×2 (09:07→16:47)
[2019-05-14] MEDS: DILTIAZEM HCL CD 120 MG CAP.SR.24H PO SCH ×2 (09:11→16:50)
[2019-05-14] MEDS: METOPROLOL SUCCINATE XL 50 MG TAB.SR.24H PO SCH ×2 (09:13→20:51)
[2019-05-14 11:06] VITALS: BP 105/80
[2019-05-14] MEDS ORDERED: DIGOXIN 250 MCG TABLET PO ONE ×2 (13:15→19:00)
[2019-05-14 15:22] VITALS: BP 101/50
[2019-05-14 20:01] VITALS: BP 105/67
[2019-05-14] MEDS: DOCUSATE SODIUM 250 MG CAPSULE PO SCH (20:50)
[2019-05-14] MEDS: ATORVASTATIN 10 MG TABLET PO SCH (20:50)
[2019-05-15] MEDS ORDERED: DIGOXIN 250 MCG TABLET PO ONE
[2019-05-15] MEDS ORDERED: DIGOXIN 250 MCG TABLET ONE (00:22)
[2019-05-15 00:24] VITALS: BP 123/69
[2019-05-15 05:14] VITALS: BP 110/40
[2019-05-15 06:12] LABS: BASOPHILS % (AUTO) 0.4 % (0.0-2.0); EOSINOPHILS # (AUTO) 0.4 K/uL (0.0-0.7); EOSINOPHILS % (AUTO) 3.9 % (0.0-7.0); HEMATOCRIT 37.7 % (31.2-41.9); HEMOGLOBIN 12.8 g/dL (10.9-14.3); LYMPHOCYTES % (AUTO) 18.6 % (20.5-51.5); MEAN CORPUSCULAR HEMOGLOBIN 30.6 uug (24.7-32.8); MEAN CORPUSCULAR HGB CONC 34 g/dL (32.3-35.6); MONOCYTES # (AUTO) 0.7 K/uL (2.0-10.0); NEUTROPHILS # (AUTO) 7.4 K/uL (1.8-8.9); NEUTROPHILS % (AUTO) 70.1 % (38.5-71.5); PLATELET COUNT (AUTO) 191 K/uL (179-408); RED BLOOD CELL COUNT(AUTO) 4.19 MIL/uL (3.63-4.92); WHITE BLOOD COUNT (AUTO) 10.6 K/uL (3.8-11.8)
[2019-05-15 06:17] LABS: CARBON DIOXIDE 24 mmol/L (21-32); CHLORIDE 108 mmol/L (98-107); CREATININE 0.9 mg/dL (0.6-1.3); GLUCOSE 109 mg/dL (74-106); POTASSIUM 3.9 mmol/L (3.5-5.1); UREA NITROGEN, BLOOD 15 mg/dL (7-18)
[2019-05-15] MEDS: LEVOTHYROXINE SODIUM 75 MCG TABLET PO SCH (06:21)
[2019-05-15] MEDS: PANTOPRAZOLE SODIUM 40 MG TABLET.DR PO SCH (06:21)
[2019-05-15] MEDS ORDERED: DIGOXIN 125 MCG TABLET PO SCH (09:00)
[2019-05-15] MEDS: DILTIAZEM HCL CD 120 MG CAP.SR.24H PO SCH ×2 (09:49→16:41)
[2019-05-15] MEDS: METOPROLOL SUCCINATE XL 50 MG TAB.SR.24H PO SCH (09:50)
[2019-05-15] MEDS: CEphaleXIN 500 MG CAPSULE PO SCH ×2 (09:50→16:41)
[2019-05-15] MEDS: APIXABAN 5 MG TABLET PO SCH ×2 (09:51→16:43)
[2019-05-15 11:00] VITALS: BP 128/70
[2019-05-15] MEDS ORDERED: DILT240C88 PO (11:50)
[2019-05-15] MEDS ORDERED: DIGO125T PO (11:50)
[2019-05-15] MEDS ORDERED: APIX5TAB4 PO (11:50)
[2019-05-15] MEDS ORDERED: METO-358 PO (11:50)
[2019-05-15 15:04] VITALS: BP 117/69
[2019-05-15 16:41] VITALS: BP 117/69
== END 2019-05-15 19:05 | disposition home or self-care (01) | DRG 308 ==
LOC: ER 09:24 → TELE-TD3 12:02 → TELE3 05-11 12:35
PROVIDERS: ADMIT Registered Nurse; ATTEND Registered Nurse
PROC: 3E033RZ Introduction of Antiarrhythmic into Peripheral Vein, Percutaneous Approach (ICD-10-PCS; 2019-05-10)
PROC: B246ZZ4 Ultrasonography of Right and Left Heart, Transesophageal (ICD-10-PCS; principal; 2019-05-13)
DX: I48.0 Paroxysmal atrial fibrillation (principal); I50.33 Acute on chronic diastolic (congestive) heart failure; N39.0 Urinary tract infection, site not specified; I11.0 Hypertensive heart disease with heart failure; I51.3 Intracardiac thrombosis, not elsewhere classified; E78.5 Hyperlipidemia, unspecified; Z95.2 Presence of prosthetic heart valve; B96.1 Klebsiella pneumoniae [K. pneumoniae] as the cause of diseases classified elsewhere; R79.89 Other specified abnormal findings of blood chemistry; E03.9 Hypothyroidism, unspecified; I67.1 Cerebral aneurysm, nonruptured; I08.3 Combined rheumatic disorders of mitral, aortic and tricuspid valves; I25.2 Old myocardial infarction; Z79.01 Long term (current) use of anticoagulants; Z79.899 Other long term (current) drug therapy
CPT/HCPCS: 36415; 70030-TC; 71045; 83735; 84100; 84443; 85025; 85730; 87077; 87086; 93005; 93307; 93312; A4663; G0378; J1940; J3010; J3480; J3490; J7040; J7050; J7060